=== PATIENT | female | born 1980 | race Hispanic/Latino ===

== ENCOUNTER 2020-10-26 08:45 | Outpatient (CLI) | payer OTHER ==
[2020-10-26 16:44] LABS: SARS-CoV-2 PCR by NAA Not Detected (NotDetected)
== END 2020-10-26 08:46 | disposition home or self-care (01) ==
LOC: CSHLAB 08:45
PROVIDERS: ATTEND Surgery
DX: Z20.822 Contact with and (suspected) exposure to COVID-19 (principal)
CPT/HCPCS: 87635; U0003; U0005

== ENCOUNTER 2020-10-31 07:18 | Day surgery (SDC) | payer OTHER ==
[2020-10-30 12:58] VITALS: BMI 30.2
[2020-10-31] MEDS ORDERED: Lidocaine 1% MPF 2 ML VIAL ONE (08:10)
[2020-10-31] MEDS ORDERED: Lidocaine 1% PF 5 ML VIAL ONE (08:40)
[2020-10-31] MEDS ORDERED: Midazolam HCl 2 mg/2 ml Vial ONE (08:40)
[2020-10-31] MEDS ORDERED: PROPOFOL 20 ML ONE ×2 (08:40)
[2020-10-31] MEDS ORDERED: Fentanyl 100 MCG/2 ML VIAL ONE (08:40)
== END 2020-10-31 11:10 | disposition home or self-care (01) ==
LOC: CSHSDC 07:18
PROVIDERS: ATTEND Surgery
PROC: 0DJD8ZZ Inspection of Lower Intestinal Tract, Via Natural or Artificial Opening Endoscopic (ICD-10-PCS; principal; 2020-10-31)
DX: Z12.11 Encounter for screening for malignant neoplasm of colon (principal); K64.8 Other hemorrhoids; Z86.010 Personal history of colon polyps
CPT/HCPCS: J2250; J2704; J3010